=== PATIENT | female | born 1935 | race African-American/Black ===

== ENCOUNTER 2018-02-12 09:17 | Emergency (ER) | payer OTHER ==
[~2018-02-12] VITALS: Ht 162.6 cm; Wt 52.3 kg
[2018-02-12] MEDS ORDERED: SODIUM CHLORIDE 0.9% 250 ML IV ONE (10:31)
[2018-02-12 11:25] LABS: BASOPHILS % 1.1 % (0.0-2.0); EOSINOPHILS % 1.6 % (0.0-5.0); HEMATOCRIT. 33.7 % (36.0-48.0); HEMOGLOBIN. 11.6 g/dL (12.0-16.0); LYMPHOCYTES % 16.5 % (20.0-50.0); MEAN CORPUSCULAR HEMOGLOBIN 32.7 pg (28.0-32.0); MEAN CORPUSCULAR VOLUME 94.5 fL (81.0-99.0); MEAN PLATELET VOLUME 7.6 fl (7.4-10.4); MONOCYTES % 8.1 % (2.0-8.0); NEUTROPHILS % 72.7 % (40.0-76.0); PLATELET 199 x1000/uL (130-400); RED BLOOD CELL COUNT 3.56 mill/uL (4.2-5.4); RED CELL DISTRIBUTION WIDTH 13.8 % (11.6-14.6)
[2018-02-12 11:33] LABS: INR 1.1; PARTIAL THROMBOPLASTIN TIME 22.4 sec (23.4-31.0); PROTHROMBIN TIME 10.7 sec (9.1-11.1)
[2018-02-12 11:35] LABS: CHLORIDE 103 mEq/L (98-107)
[2018-02-12] MEDS ORDERED: ASPIRIN 81MG TABLET PO ONE (12:30)
[2018-02-12 13:17] LABS: CLARITY URINE CLEAR (CLEAR); COLOR URINE YELLOW (YELLOW); KETONES URINE NEGATIVE (NEGATIVE); LEUKOCYTE ESTERASE URINE 1+ (NEGATIVE); NITRITE URINE NEGATIVE (NEGATIVE); OCCULT BLOOD URINE NEGATIVE (NEGATIVE); PROTEIN URINE NEGATIVE (NEGATIVE); SPECIFIC GRAVITY URINE 1.009 (1.005-1.030); UROBILINOGEN URINE 0.2 E.U./dL (0.2-1.0)
[2018-02-12 13:23] VITALS: BP 111/70
== END 2018-02-12 14:56 | disposition short-term general hospital (02) ==
LOC: ER 09:58 → EDBEDREQ 10:06 → ER 14:56 → CANBEDREQ 15:02
DX: I63.9 Cerebral infarction, unspecified (principal); I11.0 Hypertensive heart disease with heart failure; I50.9 Heart failure, unspecified; R29.703 NIHSS score 3
CPT/HCPCS: 36415; 70450; 71045; 72170; 80053; 81003; 82962; 83735; 83880; 84484; 85025; 85610; 85730; 93005; 96360; 99291; G0482; J7040; J7050